=== PATIENT | female | born 1965 | race Caucasian/White ===

== ENCOUNTER 2016-09-23 10:22 | Observation (INO) | payer MEDICAID ==
[2016-09-23] MEDS ORDERED: Sodium Chloride 0.9% 1,000 ML IV STA (10:51)
[2016-09-23] MEDS ORDERED: Ondansetron 4 MG/2 ML SDV IVPUSH ONE (10:51)
[2016-09-23] MEDS ORDERED: HYDROmorphone 1 MG/ML Syringe IVPUSH ONE (10:56)
--- NOTE | 2016-09-23 11:03 | EDM.PDOC ---
ED HPI GENERAL MEDICAL PROBLEM - General Chief Complaint: Abdominal Pain Stated Complaint: FEVER, DIARRHEA,BLOATING AFTER SURGERY Time Seen by Provider: 09/23/16 10:42 Source of Information: Reports: Patient History Limitations: Reports: No Limitations - History of Present Illness INITIAL COMMENTS - FREE TEXT/NARRATIVE: The patient presents with generalized abdominal pain, nausea and vomiting. She also has diarrhea. She says she feels bloated. She has a fever and chills. She has no dysuria. She did not eat any bad food and she was not around anyone who was sick. She recently had surgery on August 29 in [place], [place]. She had ovarian cancer. She had a PET scan that was negative and she has been doing good. They used the robot to do the surgery. She has no other health problems. She denies cough, congestion, runny nose, chest pain and shortness of breath. Onset: Gradual Duration: Day(s): Location: Reports: Abdomen Quality: Reports: Other (Bloated and cramping) Severity: Moderate Improves with: Reports: None Worsens with: Reports: None Associated Symptoms: Reports: Fever/Chills, Nausea/Vomiting. Denies: Chest Pain , Shortness of Breath Abdominal Pain Score (Numeric/FACES): 7 - Related Data Allergies Allergy/AdvReac Type Severity Reaction Status Date / Time No Known Allergies Allergy Verified 09/23/16 10:38 Home Meds: Home Meds . 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: , Other (See Below) Other OB/BYN History: c-sections Oncologic (Cancer) History: Reports: Ovarian - Past Surgical History Oncologic Surgical History: Reports: Other (See Below) Other Oncologic Surgeries/Procedures: hysterectomy to remove ovarian cancer Social & Family History - Tobacco Use Smoking Status *Q: Never Smoker - Caffeine Use Caffeine Use: Reports: None - Recreational Drug Use Recreational Drug Use: No ED ROS GENERAL - Review of Systems Review Of Systems: See Below Constitutional: Reports: Fever, Chills HEENT: Reports: No Symptoms Respiratory: Reports: No Symptoms Cardiovascular: Reports: No Symptoms Endocrine: Reports: No Symptoms GI/Abdominal: Reports: Abdominal Pain, Diarrhea, Nausea, Vomiting : Reports: No Symptoms Musculoskeletal: Reports: No Symptoms Skin: Reports: No Symptoms Neurological: Reports: No Symptoms ED EXAM, GI/ABD - Physical Exam Exam: See Below Exam Limited By: No Limitations General Appearance: Alert, No Apparent Distress Ears: Normal External Exam Nose: Normal Inspection Head: Atraumatic, Normocephalic Neck: Normal Inspection Respiratory/Chest: No Respiratory Distress, Lungs Clear, Normal Breath Sounds Cardiovascular: Regular Rate, Rhythm, No Edema, No Murmur GI/Abdominal Exam: Soft, No Organomegaly, No Mass, Tender (Generalized) Back Exam: Normal Inspection Course - Vital Signs Last Recorded V/S: Last Vital Signs Temp 99.3 F 09/23/16 10:34 Pulse 96 09/23/16 10:34 Resp 16 09/23/16 10:34 BP 118/67 09/23/16 10:34 Pulse Ox 100 09/23/16 10:34 - Orders/Labs/Meds Orders: Active Orders 24 hr Category Date Time Status Peripheral IV Care [RC] . DIRECTED Care 09/23/16 10:51 Active Abdomen Pelvis w Cont [CT] Stat Exams 09/23/16 11:04 Taken CULTURE BLOOD [BC] Stat Lab 09/23/16 13:30 Received CULTURE BLOOD [BC] Stat Lab 09/23/16 13:45 Received Levofloxacin/Dextrose 5%-Water [Levaquin in D5W 500 MG/ Med 09/23/16 14:20 Active 100 ML] 500 mg Premix Bag 1 bag IV ONETIME Sodium Chloride 0.9% [Normal Saline] 1,000 ml Med 09/23/16 12:30 Active IV ASDIRECTED Sodium Chloride 0.9% [Saline Flush] Med 09/23/16 10:51 Active 10 ml FLUSH ASDIRECTED PRN Blood Culture x2 Reflex Set [OM.PC] Stat Oth 09/23/16 13:10 Ordered ED Antiemetic Medication Reflex [OM.PC] Stat Oth 09/23/16 10:52 Ordered Peripheral IV Insertion Adult [OM.PC] Stat Oth 09/23/16 10:51 Ordered Medication Orders Sodium Chloride (Normal Saline) 1,000 mls @ 150 mls/hr IV ASDIRECTED OWEN Last Admin: 09/23/16 12:30 Dose: 150 mls/hr Levofloxacin/Dextrose 500 mg/ (Premix) 100 mls @ 100 mls/hr IV ONETIME ONE Stop: 08/19/17 15:19 Sodium Chloride (Saline Flush) 10 ml FLUSH ASDIRECTED PRN PRN Reason: Keep Vein Open Last Admin: 09/23/16 12:29 Dose: 10 ml Admin: 09/23/16 12:12 Dose: 10 ml Admin: 09/23/16 11:32 Dose: 10 ml Labs: Laboratory Tests 09/23/16 09/23/16 09/23/16 Range/Units 11:12 11:12 11:55 WBC 12.49 H (3.98-10.04) K/mm3 RBC 3.95 L (3.98-5.22) M/mm3 Hgb 9.2 L (11.2-15.7) gm/L Hct 29.9 L (34.1-44.9) % MCV 75.7 L (79.4-94.8) fl MCH 23.3 L (25.6-32.2) pg MCHC 30.8 L (32.2-35.5) g/dl RDW Std Deviation 45.2 (36.4-46.3) fL Plt Count 1040 H* (182-369) K/mm3 MPV 9.8 (9.4-12.3) fl Neut % (Auto) 94.4 H (34.0-71.1) % Lymph % (Auto) 2.6 L (19.3-51.7) % Dickson % (Auto) 2.2 L (4.7-12.5) % Eos % (Auto) 0.2 L (0.7-5.8) Baso % (Auto) 0.4 (0.1-1.2) % Neut # (Auto) 11.78 H (1.56-6.13) K/mm3 Lymph # (Auto) 0.33 L (1.18-3.74) K/mm3 Dickson # (Auto) 0.28 (0.24-0.36) K/mm3 Eos # (Auto) 0.02 L (0.04-0.36) K/mm3 Baso # (Auto) 0.05 (0.01-0.08) K/mm3 Manual Slide Review Abnormal smear Sodium 137 (136-145) mEq/L Potassium 3.5 (3.5-5.1) mEq/L Chloride 104 (98-107) mEq/L Carbon Dioxide 21 (21-32) mEq/L Anion Gap 15.5 H (5-15) BUN 14 (7-18) mg/dL Creatinine 0.8 (0.55-1.02) mg/dL Est Cr Clr Drug Dosing 77.88 mL/min Estimated GFR (MDRD) > 60 (>60) mL/min BUN/Creatinine Ratio 17.5 (14-18) Glucose 113 H (74-106) mg/dL Calcium 9.0 (8.5-10.1) mg/dL Total Bilirubin 0.7 (0.2-1.0) mg/dL AST 15 (15-37) U/L ALT 23 (14-59) U/L Alkaline Phosphatase 62 (46-116) U/L Total Protein 8.1 (6.4-8.2) g/dl Albumin 3.9 (3.4-5.0) g/dl Globulin 4.2 gm/dL Albumin/Globulin Ratio 0.9 L (1-2) Lipase 77 (73-393) U/L Urine Color Yellow (Yellow) Urine Appearance Clear (Clear) Urine pH 7.0 (5.0-8.0) Ur Specific [place] 1.015 (1.005-1.030) Urine Protein Negative (Negative) Urine Glucose (UA) Negative (Negative) Urine Ketones Negative (Negative) Urine Occult Blood Negative (Negative) Urine Nitrite Negative (Negative) Urine Bilirubin Negative (Negative) Urine Urobilinogen 0.2 (0.2-1.0) Ur Leukocyte Esterase Negative (Negative) Urine RBC 0-5 (0-5) /hpf Urine WBC 0-5 (0-5) /hpf Ur Epithelial Cells 0-5 (0-5) /hpf Urine Bacteria Few (FEW) /hpf Urine Mucus Not seen (FEW) /hpf Meds: Medications Generic Name Dose Route Start Last Admin Trade Name Freq PRN Reason Stop Dose Admin Sodium Chloride 1,000 mls @ 150 mls/hr 09/23/16 12:30 09/23/16 12:30 Normal Saline IV 150 mls/hr ASDIRECTED OWEN Administration Levofloxacin/Dextrose 500 mg/ 100 mls @ 100 mls/hr 09/23/16 14:20 Premix IV 09/23/16 15:19 ONETIME ONE Sodium Chloride 10 ml 09/23/16 10:51 09/23/16 12:29 Saline Flush FLUSH 10 ml ASDIRECTED PRN Administration Keep Vein Open Discontinued Medications Generic Name Dose Route Start Last Admin Trade Name Jimena PRN Reason Stop Dose Admin Diatrizoate Meglum/Diatrizoate Sod 90 ml 09/23/16 11:59 09/23/16 12:12 Gastrografin 37% PO 09/23/16 12:00 90 ml ONETIME ONE Administration Hydromorphone HCl 1 mg 09/23/16 10:56 09/23/16 11:13 Dilaudid IVPUSH 09/23/16 10:57 1 mg ONETIME ONE Administration Hydromorphone HCl 0.5 mg 09/23/16 12:24 09/23/16 12:34 Dilaudid IVPUSH 09/23/16 12:25 0.5 mg ONETIME ONE Administration Sodium Chloride 1,000 mls @ 1,000 mls/hr 09/23/16 10:51 09/23/16 11:09 Normal Saline IV 09/23/16 11:50 1,000 mls/hr .BOLUS STA Administration Iopamidol 125 ml 09/23/16 11:59 09/23/16 12:12 Isovue-300 (61%) IVPUSH 09/23/16 12:00 125 ml ONETIME ONE Administration Ondansetron HCl 4 mg 09/23/16 10:51 09/23/16 11:10 Zofran IVPUSH 09/23/16 10:52 4 mg ONETIME ONE Administration - Re-Assessments/Exams Free Text/Narrative Re-Assessment/Exam: 09/23/16 11:06 I ordered an IV NS 1L bolus, zofran 4mg IV, dilaudid 1mg IV, labs, UA and CT of her abdomen and pelvis. 09/23/16 14:14 Her WBC was elevated at 12.49. Her Hgb was low at 9.2. She said she did need a transfusion when she was seen for the ovarian cancer. She had bleeding before the surgery. Her platelets were very elevated at 1,040. She has never had trouble with her platelets before. Her anion gap was slightly elevated at 15.5. Her lipase was normal. The CT of her abdomen and pelvis shows ventral abdominal hernia in the right anterior abdominal wall containing small bowel without evidence of obstruction. Cystic fluid collection in the posterior right hemipelvis, nonspecific but may represent a postsurgical seroma. I called Dr Palmer and he was concerned that this could be a reactive thrombocytosis. He recommended blood cultures and follow up with him or one of his partners next week. I ordered the cultures and I talked to the patient she feels better but she is still weak and a little light headed. I will give her a dose of levaquin 500mg IV and see if Dr Pineda our hospitalist would admit her and she would. Departure - Departure Time of Disposition: 14:30 Disposition: Refer to Observation Condition: Fair Clinical Impression: Thrombocytosis Leukocytosis Qualifiers: Leukocytosis type: unspecified Qualified Code(s): D72.829 - Elevated white blood cell count, unspecified Abdominal pain Qualifiers: Abdominal location: generalized Qualified Code(s): R10.84 - Generalized abdominal pain Nausea and vomiting Qualifiers: Vomiting type: unspecified Vomiting Intractability: unspecified Qualified Code( s): R11.2 - Nausea with vomiting, unspecified Diarrhea Qualifiers: Diarrhea type: unspecified type Qualified Code(s): R19.7 - Diarrhea, unspecified - Discharge Information Forms: ED Department Discharge - My Orders Last 24 Hours: My Active Orders 09/23/16 10:51 Peripheral IV Care [RC] . DIRECTED Sodium Chloride 0.9% [Saline Flush] 10 ml FLUSH ASDIRECTED PRN Peripheral IV Insertion Adult [OM.PC] Stat 09/23/16 10:52 ED Antiemetic Medication Reflex [OM.PC] Stat 09/23/16 11:04 Abdomen Pelvis w Cont [CT] Stat 09/23/16 12:30 Sodium Chloride 0.9% [Normal Saline] 1,000 ml IV ASDIRECTED 09/23/16 13:10 Blood Culture x2 Reflex Set [OM.PC] Stat 09/23/16 13:30 CULTURE BLOOD [BC] Stat 09/23/16 13:45 CULTURE BLOOD [BC] Stat 09/23/16 14:20 Levofloxacin/Dextrose 5%-Water [Levaquin in D5W 500 MG/100 ML] 500 mg Premix Bag 1 bag IV ONETIME - Assessment/Plan Last 24 Hours: My Active Orders 09/23/16 10:51 Peripheral IV Care [RC] . DIRECTED Sodium Chloride 0.9% [Saline Flush] 10 ml FLUSH ASDIRECTED PRN Peripheral IV Insertion Adult [OM.PC] Stat 09/23/16 10:52 ED Antiemetic Medication Reflex [OM.PC] Stat 09/23/16 11:04 Abdomen Pelvis w Cont [CT] Stat 09/23/16 12:30 Sodium Chloride 0.9% [Normal Saline] 1,000 ml IV ASDIRECTED 09/23/16 13:10 Blood Culture x2 Reflex Set [OM.PC] Stat 09/23/16 13:30 CULTURE BLOOD [BC] Stat 09/23/16 13:45 CULTURE BLOOD [BC] Stat 09/23/16 14:20 Levofloxacin/Dextrose 5%-Water [Levaquin in D5W 500 MG/100 ML] 500 mg Premix Bag 1 bag IV ONETIME
[2016-09-23] MEDS: Sodium Chloride 0.9% 10 ML Syringe FLUSH PRN ×3 (11:32→12:29)
[2016-09-23] MEDS ORDERED: Diatrizoate Meglumine/Diatrizoate Sodium 37% 120 ML Bottle PO ONE (11:59)
[2016-09-23] MEDS ORDERED: Iopamidol 612 MG/ML 150 ML Bottle IVPUSH ONE (11:59)
[2016-09-23] MEDS ORDERED: HYDROmorphone 0.5 MG/0.5 ML Syringe IVPUSH ONE (12:24)
[2016-09-23] MEDS: Sodium Chloride 0.9% 1,000 ML IV SCH (12:30)
[2016-09-23] MEDS ORDERED: Levofloxacin/Dextrose 5%-Water 500 MG in Premix Bag 1 BAG IV ONE (14:20)
[2016-09-23] MEDS ORDERED: Ondansetron 4 MG/2 ML SDV IVPUSH PRN (15:41)
[2016-09-23] MEDS ORDERED: Prochlorperazine 10 MG/2 ML SDV IVPUSH PRN (15:44)
[2016-09-23] MEDS ORDERED: Potassium Chloride 10% 20 MEQ/15 ML Soln 30 ML UD Cup PO ONE ×2 (15:46→16:30)
[2016-09-23] MEDS: HYDROmorphone 0.5 MG/0.5 ML Syringe IVPUSH PRN ×2 (16:04→21:53)
--- NOTE | 2016-09-23 16:18 | PCM.HP ---
H&P History of Present Illness - General Date of Service: 09/23/16 Admit Problem/Dx: Admission Diagnosis/Problem Admission Diagnosis/Problem Abdominal pain Source of Information: Patient, Provider History Limitations: Reports: No Limitations - History of Present Illness Initial Comments - Free Text/Narative: 51 year old female dehydrated with diarrhea, presented with a complaint of fever and chills. She is post op 4 weeks, abdominal hysterectomy for ovarian CA. Recent PET scan was reportedly WNL. She has had a decreased appetite, malaise and generalized weakness. The abdominal pain is generalized, unrelated to eating. She denies blood or mucous in her stool. She is being admitted to observation for ATB, IVF, await blood cultures to direct plan of care. She received the initial dose of Levoquin in the ED. Onset of Symptoms: Reports: Unknown/Unsure Duration of Symptoms: Reports: Day(s):, Getting Worse Location: Reports: Abdomen, Generalized Severity: Moderate Improves with: Reports: Medication Associated Symptoms: Reports: Fever/Chills, Loss of Appetite, Malaise, Nausea/ Vomiting Abdominal Pain Score (Numeric/FACES): 7 - Related Data Allergies/Adverse Reactions: Allergies Allergy/AdvReac Type Severity Reaction Status Date / Time No Known Allergies Allergy Verified 09/23/16 10:38 Home Medications: Home Meds . 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: , Other (See Below) Other OB/BYN History: c-sections Musculoskeletal History: Reports: Other (See Below) Other Musculoskeletal History: slight curvature in cervical spine per pt report- neck pain at times Neurological History: Reports: None Hematologic History: Reports: Anemia, Blood Transfusion(s) Other Hematologic History: shedding of urterus during ovarian cancer Immunologic History: Reports: None Oncologic (Cancer) History: Reports: Ovarian Dermatologic History: Reports: None - Infectious Disease History Infectious Disease History: Reports: Chicken Pox - Past Surgical History GI Surgical History: Reports: None Musculoskeletal Surgical History: Reports: None Oncologic Surgical History: Reports: Other (See Below) Other Oncologic Surgeries/Procedures: hysterectomy to remove ovarian cancer, august 29 2016 Social & Family History - Family History : Reports: Renal Disease/Insufficiency Other Family History: brother Neurological: Reports: TIA Other Neurological Family History: father Endocrine/Metabolic: Reports: Diabetes, type II Other Endocrine/Metabolic Family History: grandmother - Tobacco Use Smoking Status *Q: Never Smoker Second Hand Smoke Exposure: No - Caffeine Use Caffeine Use: Reports: Tea - Recreational Drug Use Recreational Drug Use: No H&P Review of Systems - Review of Systems: Review Of Systems: See Below General: Reports: Malaise, Weakness, Fatigue, Decreased Appetite HEENT: Reports: No Symptoms Pulmonary: Reports: No Symptoms Cardiovascular: Reports: Lightheadedness Gastrointestinal: Reports: Abdominal Pain, Diarrhea, Nausea, Vomiting Genitourinary: Reports: No Symptoms Musculoskeletal: Reports: No Symptoms Skin: Reports: No Symptoms Psychiatric: Reports: No Symptoms Neurological: Reports: No Symptoms Hematologic/Lymphatic: Reports: No Symptoms Immunologic: Reports: No Symptoms Exam - Exam Exam: See Below - Vital Signs Vital Signs: Last Vital Signs Temp 37.1 C 09/23/16 15:06 Pulse 109 H 09/23/16 15:06 Resp 16 09/23/16 15:06 BP 122/45 L 09/23/16 15:06 Pulse Ox 96 09/23/16 15:06 Weight: 79.288 kg - Exam Quality Assessment: DVT Prophylaxis General: Alert, Oriented, Cooperative HEENT: Conjunctiva Clear, Nares Patent, Normal Nasal Septum, Posterior Pharynx Clear, Pupils Equal, Pupils Reactive, TMs Clear Neck: Supple, Trachea Midline Lungs: Clear to Auscultation, Normal Respiratory Effort Cardiovascular: Regular Rate, Regular Rhythm GI/Abdominal Exam: Normal Bowel Sounds, Soft, Non-Tender, No Organomegaly, No Distention (Female) Exam: Deferred Rectal (Female) Exam: Deferred Back Exam: Normal Inspection Extremities: Normal Inspection, Non-Tender, No Pedal Edema Skin: Warm, Dry, Intact Neurological: Cranial Nerves Intact, Normal Gait, Normal Speech Neuro Extensive - Mental Status: Alert, Oriented x3, Normal Mood/Affect, Normal Cognition, Memory Intact Neuro Extensive - Motor, Sensory, Reflexes: CN II-XII Intact, Normal Gait Psychiatric: Alert, Normal Affect, Normal Mood - Patient Data Result Diagrams: 09/23/16 11:12 09/23/16 11:12 *Q Meaningful Use (ADM) - VTE *Q VTE Criteria *Q: - Stroke *Q Stroke Criteria *Q: - AMI *Q AMI Criteria *Q: - Problem List (1) Abdominal pain SNOMED Code(s): 31913286 ICD Code: R10.9 - UNSPECIFIED ABDOMINAL PAIN Status: Acute Current Visit : Yes Qualifiers: Abdominal location: generalized Qualified Code(s): R10.84 - Generalized abdominal pain (2) Diarrhea SNOMED Code(s): 43353337 ICD Code: R19.7 - DIARRHEA, UNSPECIFIED Status: Acute Current Visit: Yes Qualifiers: Diarrhea type: unspecified type Qualified Code(s): R19.7 - Diarrhea, unspecified (3) Leukocytosis SNOMED Code(s): 176123261, 240850327 ICD Code: D72.829 - ELEVATED WHITE BLOOD CELL COUNT, UNSPECIFIED Status: Acute Current Visit: Yes Qualifiers: Leukocytosis type: unspecified Qualified Code(s): D72.829 - Elevated white blood cell count, unspecified (4) Nausea and vomiting SNOMED Code(s): 33508484 ICD Code: R11.2 - NAUSEA WITH VOMITING, UNSPECIFIED Status: Acute Current Visit: Yes Qualifiers: Vomiting type: unspecified Vomiting Intractability: unspecified Qualified Code(s): R11.2 - Nausea with vomiting, unspecified (5) Thrombocytosis SNOMED Code(s): 0266878, 090487428 ICD Code: D47.3 - ESSENTIAL (HEMORRHAGIC) THROMBOCYTHEMIA Status: Acute Current Visit: Yes Problem List Initiated/Reviewed/Updated: Yes Orders Last 24hrs: Active Orders 24 hr Category Date Time Status Patient Status [ADT] Routine ADT 09/23/16 15:02 Active Activity as Tolerated [RC] .Routine Care 09/23/16 15:37 Active Vital Signs [RC] Q4HR Care 09/23/16 15:37 Active Consult to Case Management [CONS] Routine Cons 09/25/16 08:00 Active BASIC METABOLIC PANEL,BMP [CHEM] DAILY Lab 09/24/16 05:00 Ordered BASIC METABOLIC PANEL,BMP [CHEM] DAILY Lab 09/25/16 05:00 Ordered CBC WITH AUTO DIFF [HEME] DAILY Lab 09/24/16 05:00 Ordered CBC WITH AUTO DIFF [HEME] DAILY Lab 09/25/16 05:00 Ordered CRP [C-REACTIVE PROTEIN] [CHEM] DAILY Lab 09/24/16 05:00 Ordered CRP [C-REACTIVE PROTEIN] [CHEM] DAILY Lab 09/25/16 05:00 Ordered MAGNESIUM [CHEM] DAILY Lab 09/24/16 05:00 Ordered MAGNESIUM [CHEM] DAILY Lab 09/25/16 05:00 Ordered Acetaminophen [Tylenol] Med 09/23/16 15:42 Active 650 mg PO Q6H PRN Enoxaparin [Lovenox] Med 09/23/16 17:00 Active 40 mg SUBCUT DAILY HYDROmorphone [Dilaudid] Med 09/23/16 15:42 Active 0.5 mg IVPUSH Q4H PRN Levofloxacin/Dextrose 5%-Water [Levaquin in D5W 750 MG/ Med 09/24/16 09:00 Active 150 ML] 750 mg Premix Bag 1 bag IV Q24H Ondansetron [Zofran] Med 09/23/16 15:41 Active 4 mg IVPUSH Q8H PRN Prochlorperazine [Compazine] Med 09/23/16 15:44 Active 10 mg IVPUSH Q6H PRN Resuscitation Status Routine Resus Stat 09/23/16 15:48 Ordered Medication Orders Acetaminophen (Tylenol) 650 mg PO Q6H PRN PRN Reason: Pain/Fever Enoxaparin Sodium (Lovenox) 40 mg SUBCUT DAILY [facility] Hydromorphone HCl (Dilaudid) 0.5 mg IVPUSH Q4H PRN PRN Reason: Pain (moderate 4-6) Sodium Chloride (Normal Saline) 1,000 mls @ 150 mls/hr IV ASDIRECTED [facility] Last Admin: 09/23/16 12:30 Dose: 150 mls/hr Levofloxacin/Dextrose 750 mg/ (Premix) 150 mls @ 100 mls/hr IV Q24H [facility] Ondansetron HCl (Zofran) 4 mg IVPUSH Q8H PRN PRN Reason: Nausea/Vomiting Prochlorperazine Edisylate (Compazine) 10 mg IVPUSH Q6H PRN PRN Reason: Nausea/Vomiting Sodium Chloride (Saline Flush) 10 ml FLUSH ASDIRECTED PRN PRN Reason: Keep Vein Open Last Admin: 09/23/16 12:29 Dose: 10 ml Admin: 09/23/16 12:12 Dose: 10 ml Admin: 09/23/16 11:32 Dose: 10 ml Assessment/Plan Comment:: Impression: S/P Abdominal Hysterectomy August 29, 2016 Ovarian CA with negative PET Scan Abdominal pain Abnormal CT of abdomen/pelvis with possible nonspecific post surgical seroma Ventral Hernia with small bowel, non obstruction Diarrhea Thrombocytosis, query reactive Dehydration Electrolyte imbalance Plan: Hydration, continue IVF Replace electrolytes Pain mgt Daily Labs IV ATBs, empirically Follow up with Dr Palmer next week, will need to call DVT/GI prophylaxis CM/PT/OT
[2016-09-23] MEDS: Enoxaparin 40 MG/0.4 ML Syringe SUBCUT SCH (16:26)
[2016-09-23] MEDS: Acetaminophen Soln 650 MG/20.3 ML UD Cup PO PRN (20:17)
[2016-09-24] MEDS: Sodium Chloride 0.9% 1,000 ML IV SCH ×3 (01:23→14:48)
[2016-09-24] MEDS ORDERED: Magnesium Sulfate/Water 2 GM in Premix Bag 1 BAG IV ONE (07:54)
[2016-09-24] MEDS: HYDROmorphone 0.5 MG/0.5 ML Syringe IVPUSH PRN (08:09)
[2016-09-24] MEDS: Levofloxacin/Dextrose 5%-Water 750 MG in Premix Bag 1 BAG IV SCH (08:11)
[2016-09-24] MEDS: Enoxaparin 40 MG/0.4 ML Syringe SUBCUT SCH (08:11)
--- NOTE | 2016-09-24 08:30 | PCM.PN ---
- General Info Date of Service: 09/24/16 Admission Dx/Problem (Free Text): Admission Diagnosis/Problem Admission Diagnosis/Problem Abdominal pain Subjective Update: Follow Up Functional Status: Reports: Pain Controlled, Tolerating Diet, Ambulating, Urinating. Denies: New Symptoms - Review of Systems General: Denies: Fever, Weakness, Fatigue, Malaise HEENT: Reports: No Symptoms Pulmonary: Denies: Shortness of Breath Cardiovascular: Denies: Chest Pain Gastrointestinal: Denies: Abdominal Pain, Nausea, Vomiting Genitourinary: Reports: No Symptoms Musculoskeletal: Reports: No Symptoms Skin: Denies: Cyanosis, Pruritis Neurological: Denies: Confusion, Difficulty Walking, Weakness, Gait Disturbance Psychiatric: Denies: Depression, Anxiety, Agitation, Hallucinations Systems Review Comment:: No overnight or acute issues. She is doing relatively well. She feel much better. She has no new complaints. - Patient Data Vitals - Most Recent: Last Vital Signs Temp 37.2 C 09/24/16 03:13 Pulse 79 09/24/16 03:13 Resp 14 09/24/16 03:13 BP 111/55 L 09/24/16 03:13 Pulse Ox 96 09/24/16 03:13 Weight - Most Recent: 79.742 kg I&O - Last 24 Hours: Intake & Output 09/23/16 09/24/16 09/24/16 22:59 06:59 14:59 Intake Total 150 3469 Output Total 900 Balance 150 2569 Lab Results Last 24 Hours: Laboratory Results - last 24 hr 09/24/16 09/24/16 09/24/16 Range/Units 05:45 05:45 07:00 WBC 3.76 L 3.49 L (3.98-10.04) K/mm3 RBC 3.33 L 3.28 L (3.98-5.22) M/mm3 Hgb 7.8 L 7.6 L (11.2-15.7) gm/L Hct 25.8 L 25.5 L (34.1-44.9) % MCV 77.5 L 77.7 L (79.4-94.8) fl MCH 23.4 L 23.2 L (25.6-32.2) pg MCHC 30.2 L 29.8 L (32.2-35.5) g/dl RDW Std Deviation 46.0 46.2 (36.4-46.3) fL Plt Count 719 H 727 H (182-369) K/mm3 MPV 10.1 9.4 (9.4-12.3) fl Neut % (Auto) 60.1 59.6 (34.0-71.1) % Lymph % (Auto) 27.7 28.1 (19.3-51.7) % Mckenzie % (Auto) 9.3 8.9 (4.7-12.5) % Eos % (Auto) 1.3 2.0 (0.7-5.8) Baso % (Auto) 1.3 H 1.4 H (0.1-1.2) % Neut # (Auto) 2.26 2.08 (1.56-6.13) K/mm3 Lymph # (Auto) 1.04 L 0.98 L (1.18-3.74) K/mm3 Mckenzie # (Auto) 0.35 0.31 (0.24-0.36) K/mm3 Eos # (Auto) 0.05 0.07 (0.04-0.36) K/mm3 Baso # (Auto) 0.05 0.05 (0.01-0.08) K/mm3 Manual Slide Review Abnormal smear Abnormal smear Sodium 141 (136-145) mEq/L Potassium 3.3 L (3.5-5.1) mEq/L Chloride 110 H (98-107) mEq/L Carbon Dioxide 21 (21-32) mEq/L Anion Gap 13.3 (5-15) BUN 6 L (7-18) mg/dL Creatinine 0.6 (0.55-1.02) mg/dL Est Cr Clr Drug Dosing 79.68 mL/min Estimated GFR (MDRD) > 60 (>60) mL/min BUN/Creatinine Ratio 10.0 L (14-18) Glucose 96 (74-106) mg/dL Calcium 8.2 L (8.5-10.1) mg/dL Magnesium 1.9 (1.8-2.4) mg/dl C-Reactive Protein 7.5 H* (<1.0) mg/dL Med Orders - Current: Current Medications Acetaminophen (Tylenol) 650 mg PO Q6H PRN PRN Reason: Pain/Fever Last Admin: 09/23/16 20:17 Dose: 650 mg Enoxaparin Sodium (Lovenox) 40 mg SUBCUT DAILY [facility] Last Admin: 09/24/16 08:11 Dose: 40 mg Hydromorphone HCl (Dilaudid) 0.5 mg IVPUSH Q4H PRN PRN Reason: Pain (moderate 4-6) Last Admin: 09/24/16 08:09 Dose: 0.5 mg Sodium Chloride (Normal Saline) 1,000 mls @ 150 mls/hr IV ASDIRECTED [facility] Last Admin: 09/24/16 08:09 Dose: 150 mls/hr Levofloxacin/Dextrose 750 mg/ (Premix) 150 mls @ 100 mls/hr IV Q24H [facility] Last Admin: 09/24/16 08:11 Dose: 100 mls/hr Magnesium Sulfate 2 gm/ Premix 50 mls @ 25 mls/hr IV ONETIME ONE Stop: 09/24/16 09:53 Ondansetron HCl (Zofran) 4 mg IVPUSH Q8H PRN PRN Reason: Nausea/Vomiting Last Admin: 09/23/16 16:03 Dose: 4 mg Potassium Chloride (Potassium Chloride) 40 meq PO BID [facility] Stop: 09/24/16 21:01 Prochlorperazine Edisylate (Compazine) 10 mg IVPUSH Q6H PRN PRN Reason: Nausea/Vomiting Sodium Chloride (Saline Flush) 10 ml FLUSH ASDIRECTED PRN PRN Reason: Keep Vein Open Last Admin: 09/23/16 12:29 Dose: 10 ml Discontinued Medications Diatrizoate Meglum/Diatrizoate Sod (Gastrografin 37%) 90 ml PO ONETIME ONE Stop: 09/23/16 12:00 Last Admin: 09/23/16 12:12 Dose: 90 ml Hydromorphone HCl (Dilaudid) 1 mg IVPUSH ONETIME ONE Stop: 09/23/16 10:57 Last Admin: 09/23/16 11:13 Dose: 1 mg Hydromorphone HCl (Dilaudid) 0.5 mg IVPUSH ONETIME ONE Stop: 09/23/16 12:25 Last Admin: 09/23/16 12:34 Dose: 0.5 mg Sodium Chloride (Normal Saline) 1,000 mls @ 1,000 mls/hr IV .BOLUS STA Stop: 09/23/16 11:50 Last Admin: 09/23/16 11:09 Dose: 1,000 mls/hr Levofloxacin/Dextrose 500 mg/ (Premix) 100 mls @ 100 mls/hr IV ONETIME ONE Stop: 09/23/16 15:19 Last Admin: 09/23/16 14:51 Dose: 100 mls/hr Iopamidol (Isovue-300 (61%)) 125 ml IVPUSH ONETIME ONE Stop: 09/23/16 12:00 Last Admin: 09/23/16 12:12 Dose: 125 ml Ondansetron HCl (Zofran) 4 mg IVPUSH ONETIME ONE Stop: 09/23/16 10:52 Last Admin: 09/23/16 11:10 Dose: 4 mg Potassium Chloride (Potassium Chloride) 40 meq PO ONETIME ONE Stop: 09/23/16 15:47 Last Admin: 09/23/16 16:26 Dose: 40 meq Potassium Chloride (Potassium Chloride) 40 meq PO ONETIME ONE Stop: 09/23/16 16:31 Last Admin: 09/23/16 16:53 Dose: Not Given - Exam General: Alert, Oriented, Cooperative, No Acute Distress HEENT: Pupils Equal, Pupils Reactive, EOMI, Mucous Membr. Moist/[place] Neck: Supple, Trachea Midline, No JVD, No Thyromegaly Lungs: Clear to Auscultation, Normal Respiratory Effort Cardiovascular: Regular Rate, Regular Rhythm GI/Abdominal Exam: Normal Bowel Sounds, Soft, No Organomegaly, No Distention, No Abnormal Bruit, No Mass, Tender (on surgical site) (Female) Exam: Deferred Back Exam: Normal Inspection, Decreased Range of Motion Extremities: Normal Inspection, Normal Range of Motion, Non-Tender, No Pedal Edema, Normal Capillary Refill Peripheral Pulses: 2+: Dorsalis Pedis (L), Dorsalis Pedis (R) Skin: Warm, Dry, Intact Neurological: No New Focal Deficit Psy/Mental Status: Alert, Normal Affect, Normal Mood - Problem List Review Problem List Initiated/Reviewed/Updated: Yes - Plan Plan:: Impression: Acute: Anemia, Unspecified - Hgb 9.2 ---> 7.6 (does not meet criteria for transfusion) - Likely post-surgical blood loss - GS consulted - Iron supplement with Vit C - Can be monitored outpatient Thrombocytosis, Improving - Likely Reactive from recent surgery - Platelet 1040 ---> now 727 - Monitor - Outpatient Hematology eval after discharge Abdominal Pain, Improved - Abnormal CT of abdomen/pelvis with possible nonspecific post surgical seroma - Ventral Hernia with small bowel, non obstruction Ovarian CA with Negative PET Scan - S/P Abdominal Hysterectomy August 29, 2016 - Stable Hypokalemia - K is 3.3 2/2 GI Loss - Pharmacy to replete and monitor Resolved: Fever Diarrhea Dehydration Electrolyte imbalance Plan: She looks clinically much better Continue current treatment Advanced diet as tolerated Daily Labs Continue IV ATBs per Deployment Technician's recommendation Follow up with Dr. Palmer next week, will need to call; patient don't mind seeing local specialist here in town ---> Dr. Martin DVT/GI prophylaxis CM/MAXIM for d/c planning Possible d/c in AM
[2016-09-24] MEDS ORDERED: Metoprolol Tartrate 5 MG/5 ML SDV IVPUSH PRN (09:47)
[2016-09-24] MEDS ORDERED: hydrALAZINE 20 MG/ML SDV IVPUSH PRN (09:47)
[2016-09-24] MEDS: Potassium Chloride 10% 20 MEQ/15 ML Soln 30 ML UD Cup PO SCH ×2 (10:05→22:12)
--- NOTE | 2016-09-24 13:59 | PCM.CONSN ---
- General Info Date of Service: 09/24/16 - Patient Data Vitals - Most Recent: Last Vital Signs Temp 99.0 F 09/24/16 03:13 Pulse 79 09/24/16 03:13 Resp 14 09/24/16 03:13 BP 111/55 L 09/24/16 03:13 Pulse Ox 96 09/24/16 03:13 Weight - Most Recent: 79.742 kg I&O - Last 24 Hours: Intake & Output 09/23/16 09/24/16 09/24/16 23:59 07:59 15:59 Intake Total 150 3469 360 Output Total 900 Balance 150 2569 360 Lab Results Last 24 Hours: Laboratory Results - last 24 hr 09/24/16 09/24/16 09/24/16 Range/Units 05:45 05:45 05:45 WBC 3.76 L (3.98-10.04) K/mm3 RBC 3.33 L (3.98-5.22) M/mm3 Hgb 7.8 L (11.2-15.7) gm/L Hct 25.8 L (34.1-44.9) % MCV 77.5 L (79.4-94.8) fl MCH 23.4 L (25.6-32.2) pg MCHC 30.2 L (32.2-35.5) g/dl RDW Std Deviation 46.0 (36.4-46.3) fL Plt Count 719 H (182-369) K/mm3 MPV 10.1 (9.4-12.3) fl Neut % (Auto) 60.1 (34.0-71.1) % Lymph % (Auto) 27.7 (19.3-51.7) % Castro % (Auto) 9.3 (4.7-12.5) % Eos % (Auto) 1.3 (0.7-5.8) Baso % (Auto) 1.3 H (0.1-1.2) % Neut # (Auto) 2.26 (1.56-6.13) K/mm3 Lymph # (Auto) 1.04 L (1.18-3.74) K/mm3 [place] # (Auto) 0.35 (0.24-0.36) K/mm3 Eos # (Auto) 0.05 (0.04-0.36) K/mm3 Baso # (Auto) 0.05 (0.01-0.08) K/mm3 Manual Slide Review Abnormal smear D-Dimer, Quantitative 0.35 (0.19-0.59) mg/L Sodium 141 (136-145) mEq/L Potassium 3.3 L (3.5-5.1) mEq/L Chloride 110 H (98-107) mEq/L Carbon Dioxide 21 (21-32) mEq/L Anion Gap 13.3 (5-15) BUN 6 L (7-18) mg/dL Creatinine 0.6 (0.55-1.02) mg/dL Est Cr Clr Drug Dosing 79.68 mL/min Estimated GFR (MDRD) > 60 (>60) mL/min BUN/Creatinine Ratio 10.0 L (14-18) Glucose 96 (74-106) mg/dL Calcium 8.2 L (8.5-10.1) mg/dL Magnesium 1.9 (1.8-2.4) mg/dl C-Reactive Protein 7.5 H* (<1.0) mg/dL Mycoplasma pneumon IgM (NEGATIVE) 09/24/16 09/24/16 Range/Units 05:45 07:00 WBC 3.49 L (3.98-10.04) K/mm3 RBC 3.28 L (3.98-5.22) M/mm3 Hgb 7.6 L (11.2-15.7) gm/L Hct 25.5 L (34.1-44.9) % MCV 77.7 L (79.4-94.8) fl MCH 23.2 L (25.6-32.2) pg MCHC 29.8 L (32.2-35.5) g/dl RDW Std Deviation 46.2 (36.4-46.3) fL Plt Count 727 H (182-369) K/mm3 MPV 9.4 (9.4-12.3) fl Neut % (Auto) 59.6 (34.0-71.1) % Lymph % (Auto) 28.1 (19.3-51.7) % Castro % (Auto) 8.9 (4.7-12.5) % Eos % (Auto) 2.0 (0.7-5.8) Baso % (Auto) 1.4 H (0.1-1.2) % Neut # (Auto) 2.08 (1.56-6.13) K/mm3 Lymph # (Auto) 0.98 L (1.18-3.74) K/mm3 [place] # (Auto) 0.31 (0.24-0.36) K/mm3 Eos # (Auto) 0.07 (0.04-0.36) K/mm3 Baso # (Auto) 0.05 (0.01-0.08) K/mm3 Manual Slide Review Abnormal smear D-Dimer, Quantitative (0.19-0.59) mg/L Sodium (136-145) mEq/L Potassium (3.5-5.1) mEq/L Chloride (98-107) mEq/L Carbon Dioxide (21-32) mEq/L Anion Gap (5-15) BUN (7-18) mg/dL Creatinine (0.55-1.02) mg/dL Est Cr Clr Drug Dosing mL/min Estimated GFR (MDRD) (>60) mL/min BUN/Creatinine Ratio (14-18) Glucose (74-106) mg/dL Calcium (8.5-10.1) mg/dL Magnesium (1.8-2.4) mg/dl C-Reactive Protein (<1.0) mg/dL Mycoplasma pneumon IgM Negative (NEGATIVE) Med Orders - Current: Current Medications Acetaminophen (Tylenol) 650 mg PO Q6H PRN PRN Reason: Pain/Fever Last Admin: 09/23/16 20:17 Dose: 650 mg Enoxaparin Sodium (Lovenox) 40 mg SUBCUT DAILY [facility] Last Admin: 09/24/16 08:11 Dose: 40 mg Hydralazine HCl (Apresoline) 20 mg IVPUSH Q4H PRN PRN Reason: Hypertension Hydromorphone HCl (Dilaudid) 0.5 mg IVPUSH Q4H PRN PRN Reason: Pain (moderate 4-6) Last Admin: 09/24/16 08:09 Dose: 0.5 mg Sodium Chloride (Normal Saline) 1,000 mls @ 150 mls/hr IV ASDIRECTED [facility] Last Admin: 09/24/16 08:09 Dose: 150 mls/hr Levofloxacin/Dextrose 750 mg/ (Premix) 150 mls @ 100 mls/hr IV Q24H [facility] Last Admin: 09/24/16 08:11 Dose: 100 mls/hr Magnesium Sulfate (Pharmacy To Dose - Magnesium Replacement) 1 dose .XX ASDIRECTED [facility] Metoprolol Tartrate (Lopressor) 5 mg IVPUSH Q4H PRN PRN Reason: Tachycardia Ondansetron HCl (Zofran) 4 mg IVPUSH Q8H PRN PRN Reason: Nausea/Vomiting Last Admin: 09/23/16 16:03 Dose: 4 mg Potassium Chloride (Potassium Chloride) 40 meq PO BID [facility] Stop: 09/24/16 21:01 Last Admin: 09/24/16 10:05 Dose: 40 meq Potassium Chloride (Pharmacy To Dose - Potassium Replacement) 1 dose .XX ASDIRECTED [facility] Prochlorperazine Edisylate (Compazine) 10 mg IVPUSH Q6H PRN PRN Reason: Nausea/Vomiting Sodium Chloride (Saline Flush) 10 ml FLUSH ASDIRECTED PRN PRN Reason: Keep Vein Open Last Admin: 09/23/16 12:29 Dose: 10 ml Discontinued Medications Diatrizoate Meglum/Diatrizoate Sod (Gastrografin 37%) 90 ml PO ONETIME ONE Stop: 09/23/16 12:00 Last Admin: 09/23/16 12:12 Dose: 90 ml Hydromorphone HCl (Dilaudid) 1 mg IVPUSH ONETIME ONE Stop: 09/23/16 10:57 Last Admin: 09/23/16 11:13 Dose: 1 mg Hydromorphone HCl (Dilaudid) 0.5 mg IVPUSH ONETIME ONE Stop: 09/23/16 12:25 Last Admin: 09/23/16 12:34 Dose: 0.5 mg Sodium Chloride (Normal Saline) 1,000 mls @ 1,000 mls/hr IV .BOLUS STA Stop: 09/23/16 11:50 Last Admin: 09/23/16 11:09 Dose: 1,000 mls/hr Levofloxacin/Dextrose 500 mg/ (Premix) 100 mls @ 100 mls/hr IV ONETIME ONE Stop: 09/23/16 15:19 Last Admin: 09/23/16 14:51 Dose: 100 mls/hr Magnesium Sulfate 2 gm/ Premix 50 mls @ 25 mls/hr IV ONETIME ONE Stop: 09/24/16 09:53 Last Admin: 09/24/16 10:05 Dose: 25 mls/hr Iopamidol (Isovue-300 (61%)) 125 ml IVPUSH ONETIME ONE Stop: 09/23/16 12:00 Last Admin: 09/23/16 12:12 Dose: 125 ml Ondansetron HCl (Zofran) 4 mg IVPUSH ONETIME ONE Stop: 09/23/16 10:52 Last Admin: 09/23/16 11:10 Dose: 4 mg Potassium Chloride (Potassium Chloride) 40 meq PO ONETIME ONE Stop: 09/23/16 15:47 Last Admin: 09/23/16 16:26 Dose: 40 meq Potassium Chloride (Potassium Chloride) 40 meq PO ONETIME ONE Stop: 09/23/16 16:31 Last Admin: 09/23/16 16:53 Dose: Not Given Consult PN Assessment/Plan Problem List Initiated/Reviewed/Updated: Yes Plan: surgical consult dictated KELLI
--- NOTE | 2016-09-24 15:44 | CR ---
Chest: 2 views of the chest were obtained. Comparison: No previous chest x-rays available. Heart size and mediastinum are normal. Scoliosis is noted within the spine. Minimal atelectasis is seen within the left base. Lungs otherwise are clear. Impression: 1. Incidental findings. 2. Nothing acute is appreciated on 2 view chest x-ray. Diagnostic code #2
[2016-09-24] MEDS: Acetaminophen Soln 650 MG/20.3 ML UD Cup PO PRN (16:24)
[2016-09-24] MEDS: Iron Polysaccharides Complex 150 MG Cap PO SCH (22:13)
[2016-09-24] MEDS: Ascorbic Acid 500 MG Tab PO SCH (22:13)
[2016-09-25] MEDS: Acetaminophen Soln 650 MG/20.3 ML UD Cup PO PRN (06:48)
--- NOTE | 2016-09-25 09:13 | CONS ---
CONSULTING PHYSICIAN: Paramjit Dahl MD DATE OF CONSULTATION: 09/24/2016 REASON FOR CONSULTATION: This is a 51-year-old who on Sunday developed nausea and vomiting and then abdominal pain she also had associated with diarrhea. This persisted the following day and associated with fever and chills. She came into the emergency room and was admitted, given IV fluids and hemoglobin came from 9.2 down to 7.6. She had given a history of having a total abdominal hysterectomy for ovarian cancer a month ago by Dr. Darnell in [place]. Her recent PET scan did not show any residual disease. The patient has improved with rehydration. Her abdominal pain, nausea and vomiting have resolved, but her hemoglobin is somewhat on the low side 7.6, although she does not report any problems. REVIEW OF SYSTEMS: No chest pain, shortness of breath, cough, hoarseness, wheezing, fainting, weakness, numbness, or convulsions. PAST SURGICAL HISTORY: As stated above. FAMILY HISTORY: Diabetic disease in the family. Never smoked. She lives in [facility]. MEDICATIONS: Per medication reconciliation form. PHYSICAL EXAMINATION: GENERAL: Temperature 37, pulse 109, respirations 16, blood pressure 122/45. EYES: Sclerae white. Extraocular muscle motion normal. Oral cavity, healthy mucous membrane with mouth and tongue. NECK: Supple. No nodes. No thyromegaly. LUNGS: Clear. No rales, rhonchi, fremitus, or dullness. HEART: Tones regular rate. No S3, S4. No venous jugular distention. ABDOMEN: Soft, no tenderness, guarding, rebound are noted. No ventral hernias noted. Surgical incision healed. Upper extremities and lower extremities, no angulation or deformities. Moves all 4. NEUROLOGIC: No sensorineural deficit. Cranial nerves 3-12 intact. SKIN: Warm and dry. PSYCHIATRIC: Normal. ASSESSMENT: Anemia, possibly postsurgical. At the moment I do not recommend any workup in the hospital, but would bring her to the clinic through her family doctor too and reroute her through her family doctor before workup, she has not had a colonoscopy at this age for screening colonoscopy. Secondly her present episode of abdominal pain, nausea and vomiting may represent heat stroke and/or viral illness. The diagnosis is not yet clear. MMODAL /[id number]
[2016-09-25] MEDS: Ascorbic Acid 500 MG Tab PO SCH (09:26)
[2016-09-25] MEDS: Levofloxacin/Dextrose 5%-Water 750 MG in Premix Bag 1 BAG IV SCH (09:26)
[2016-09-25] MEDS: Enoxaparin 40 MG/0.4 ML Syringe SUBCUT SCH (09:26)
[2016-09-25] MEDS: Iron Polysaccharides Complex 150 MG Cap PO SCH (09:26)
--- NOTE | 2016-09-25 09:31 | PCM.DCSUM1 ---
Discharge Summary - Hospital Course Brief History: This is a 51 year old female who recently underwent gynecologic surgery in [place] who presented to ED with complaints of dehydration, diarrhea, along with fever and chills; was admitted for medical management of post surgical complications. - Discharge Data Discharge Date: 09/25/16 Discharge Disposition: Home, Self-Care 01 Condition: Good - Discharge Diagnosis/Problem(s) (1) Anemia SNOMED Code(s): 504335126 ICD Code: D64.9 - ANEMIA, UNSPECIFIED Status: Acute Qualifiers: Anemia type: unspecified type Qualified Code(s): D64.9 - Anemia, unspecified (2) Reactive thrombocytosis SNOMED Code(s): 166062890 ICD Code: R79.89 - OTHER SPECIFIED ABNORMAL FINDINGS OF BLOOD CHEMISTRY Status: Acute (3) Ventral hernia without obstruction or gangrene SNOMED Code(s): 986610355 ICD Code: K43.9 - VENTRAL HERNIA WITHOUT OBSTRUCTION OR GANGRENE Status: Chronic (4) Dehydration SNOMED Code(s): 37069833 ICD Code: E86.0 - DEHYDRATION Status: Resolved (5) Electrolyte imbalance SNOMED Code(s): 953857283 ICD Code: E87.8 - OTH DISORDERS OF ELECTROLYTE AND FLUID BALANCE, NEC Status: Resolved (6) Abdominal pain SNOMED Code(s): 42613753 ICD Code: R10.9 - UNSPECIFIED ABDOMINAL PAIN Status: Resolved Qualifiers: Abdominal location: generalized Qualified Code(s): R10.84 - Generalized abdominal pain (7) Diarrhea SNOMED Code(s): 06739927 ICD Code: R19.7 - DIARRHEA, UNSPECIFIED Status: Resolved Qualifiers: Diarrhea type: unspecified type Qualified Code(s): R19.7 - Diarrhea, unspecified - Patient Summary/Data Operative Procedure(s) Performed: None Complications: None Consults: Consultations 09/24/16 13:24 Consult to Physician [CONS] Routine 09/25/16 08:00 Consult to Case Management [CONS] Routine Recommended Follow-up Testing/Procedures: CBC with auto differential in 2 weeks and Hematology eval Hospital Course: Patient was primarily admitted for medical management of post-surgical complications which related to her most recent gyneoclogic surgery. She was found to have significantly elevated platelets with reduced level of hemoglobin. She had a documented platelets of 1040 and a hemoglobin level of 9.2. Her platelets improved to 725 on follow up check. However her hemoglobin dropped down to as low as 7.6 and then came back up to 8.0 after she received an initial treatment with oral iron pill plus vitamin C supplement. With supportive care and PRN medications, patient gradually improved on this regimen. Her abdominal/pelvis CT scan showed ventral hernia w/o obstruction and cystic fluid collection in the right posterior rashi-pelvis which we felt postsurgical seroma in etiology. Her hospital course was uncomplicated. She did receive intravenous antibiotic for presumptive infection but was discontinued immediately once her blood cultures and CXR were negative along with a normal level of WBC. Patient is now stable for discharge. She was advised to have a follow-up CBC in 2 weeks. She is to continue taking her oral iron pills along with vitamin C. She has been scheduled to see Dr. Chao for further evaluation of her reactive thrombocytosis. Patient was further advised to call her primary care doctor for any questions or concerns right after discharge. The patient expressed understanding and in agreement with the plans as discussed above. All questions were answered. - Patient Instructions Diet: Usual Diet as Tolerated Activity: As Tolerated Driving: Do Not Drive Showering/Bathing: May Shower Notify Provider of: Fever, Increased Pain, Nausea and/or Vomiting Other/Special Instructions: - Please take all medications as directed. - Repeat labs: CBC with auto differential in 2 weeks. - Resume routine daily activities as tolerated. - Recommend keeping your appointment with Hematology. - Call your doctor for questions or concerns after discharge. - Follow up with your family doctor in 2 weeks - Discharge Plan Prescriptions/Med Rec: Ascorbic Acid [Vitamin C] 500 mg PO BID #60 tablet Iron Polysaccharides Complex [Ferrex 150] 150 mg PO BID #60 cap Home Medications: Home Meds Ascorbic Acid [Vitamin C] 500 mg PO BID #60 tablet 09/25/16 [Rx] Iron Polysaccharides Complex [Ferrex 150] 150 mg PO BID #60 cap 09/25/16 [Rx] Patient Handouts: Anemia, Nonspecific Referrals: Nahomy Hatfield MD [Ordering Only Provider] - (Dr. Hatfield office will call with appt. time and date after reviewing records that are sent.) PCP,Not In Area [Primary Care Provider] - - Discharge Summary/Plan Comment DC Time >30 min.: Yes (45 mins) Discharge Summary/Plan Comment: Discharge to Home - General Info Date of Service: 09/25/16 Admission Dx/Problem (Free Text: Admission Diagnosis/Problem Admission Diagnosis/Problem Abdominal pain Subjective Update: Follow Up Functional Status: Reports: Pain Controlled, Tolerating Diet, Ambulating, Urinating. Denies: New Symptoms - Review of Systems General: Denies: Fever, Weakness, Fatigue, Malaise, Chills HEENT: Denies: Contact Lenses Pulmonary: Denies: Shortness of Breath, Cough, Wheezing Cardiovascular: Denies: Chest Pain, Dyspnea on Exertion, Edema, Lightheadedness Gastrointestinal: Denies: Abdominal Pain, Decreased Appetite, Diarrhea, Difficulty Swallowing, Hematochezia, Melena, Nausea, Vomiting Genitourinary: Reports: No Symptoms Musculoskeletal: Reports: No Symptoms Skin: Denies: Cyanosis, Pruritis, Rash Neurological: Denies: Confusion, Difficulty Walking, Weakness, Gait Disturbance Psychiatric: Denies: Depression, Anxiety, Agitation, Hallucinations Systems Review Comment: No overnight or acute issues. She is doing really well. She is excited to go home this morning. She has no new complaints. - Patient Data Vitals - Most Recent: Last Vital Signs Temp 36.3 C 09/25/16 03:43 Pulse 71 09/25/16 03:43 Resp 16 09/25/16 03:43 BP 115/87 09/25/16 03:43 Pulse Ox 98 09/25/16 03:43 Weight - Most Recent: 79.379 kg I&O - Last 24 hours: Intake & Output 09/24/16 09/25/16 09/25/16 22:59 06:59 14:59 Intake Total 3068 1500 Output Total 2700 Balance 368 1500 Lab Results - Last 24 hrs: Laboratory Results - last 24 hr 09/24/16 09/24/16 09/25/16 Range/Units 05:45 05:45 06:20 WBC 4.76 (3.98-10.04) K/mm3 RBC 3.47 L (3.98-5.22) M/mm3 Hgb 8.0 L (11.2-15.7) gm/L Hct 27.1 L (34.1-44.9) % MCV 78.1 L (79.4-94.8) fl MCH 23.1 L (25.6-32.2) pg MCHC 29.5 L (32.2-35.5) g/dl RDW Std Deviation 46.4 H (36.4-46.3) fL Plt Count 725 H (182-369) K/mm3 MPV 9.6 (9.4-12.3) fl Neut % (Auto) 36.5 (34.0-71.1) % Lymph % (Auto) 38.7 (19.3-51.7) % [place] % (Auto) 10.1 (4.7-12.5) % Eos % (Auto) 12.6 H (0.7-5.8) Baso % (Auto) 2.1 H (0.1-1.2) % Neut # (Auto) 1.74 (1.56-6.13) K/mm3 Lymph # (Auto) 1.84 (1.18-3.74) K/mm3 [place] # (Auto) 0.48 H (0.24-0.36) K/mm3 Eos # (Auto) 0.60 H (0.04-0.36) K/mm3 Baso # (Auto) 0.10 H (0.01-0.08) K/mm3 Manual Slide Review Abnormal smear D-Dimer, Quantitative 0.35 (0.19-0.59) mg/L Sodium (136-145) mEq/L Potassium (3.5-5.1) mEq/L Chloride (98-107) mEq/L Carbon Dioxide (21-32) mEq/L Anion Gap (5-15) BUN (7-18) mg/dL Creatinine (0.55-1.02) mg/dL Est Cr Clr Drug Dosing mL/min Estimated GFR (MDRD) (>60) mL/min BUN/Creatinine Ratio (14-18) Glucose (74-106) mg/dL Calcium (8.5-10.1) mg/dL Magnesium (1.8-2.4) mg/dl C-Reactive Protein (<1.0) mg/dL Mycoplasma pneumon IgM Negative (NEGATIVE) 09/25/16 Range/Units 06:20 WBC (3.98-10.04) K/mm3 RBC (3.98-5.22) M/mm3 Hgb (11.2-15.7) gm/L Hct (34.1-44.9) % MCV (79.4-94.8) fl MCH (25.6-32.2) pg MCHC (32.2-35.5) g/dl RDW Std Deviation (36.4-46.3) fL Plt Count (182-369) K/mm3 MPV (9.4-12.3) fl Neut % (Auto) (34.0-71.1) % Lymph % (Auto) (19.3-51.7) % [place]offey % (Auto) (4.7-12.5) % Eos % (Auto) (0.7-5.8) Baso % (Auto) (0.1-1.2) % Neut # (Auto) (1.56-6.13) K/mm3 Lymph # (Auto) (1.18-3.74) K/mm3 [place] # (Auto) (0.24-0.36) K/mm3 Eos # (Auto) (0.04-0.36) K/mm3 Baso # (Auto) (0.01-0.08) K/mm3 Manual Slide Review D-Dimer, Quantitative (0.19-0.59) mg/L Sodium 141 (136-145) mEq/L Potassium 4.1 (3.5-5.1) mEq/L Chloride 108 H (98-107) mEq/L Carbon Dioxide 23 (21-32) mEq/L Anion Gap 14.1 (5-15) BUN 5 L (7-18) mg/dL Creatinine 0.6 (0.55-1.02) mg/dL Est Cr Clr Drug Dosing 79.68 mL/min Estimated GFR (MDRD) > 60 (>60) mL/min BUN/Creatinine Ratio 8.3 L (14-18) Glucose 101 (74-106) mg/dL Calcium 9.0 (8.5-10.1) mg/dL Magnesium 2.2 (1.8-2.4) mg/dl C-Reactive Protein 5.2 H* (<1.0) mg/dL Mycoplasma pneumon IgM (NEGATIVE) Med Orders - Current: Current Medications Acetaminophen (Tylenol) 650 mg PO Q6H PRN PRN Reason: Pain/Fever Last Admin: 09/25/16 06:48 Dose: 650 mg Ascorbic Acid (Vitamin C) 500 mg PO BID OWEN Last Admin: 09/25/16 09:26 Dose: 500 mg Enoxaparin Sodium (Lovenox) 40 mg SUBCUT DAILY [facility] Last Admin: 09/25/16 09:26 Dose: 40 mg Hydralazine HCl (Apresoline) 20 mg IVPUSH Q4H PRN PRN Reason: Hypertension Hydromorphone HCl (Dilaudid) 0.5 mg IVPUSH Q4H PRN PRN Reason: Pain (moderate 4-6) Last Admin: 09/24/16 08:09 Dose: 0.5 mg Levofloxacin/Dextrose 750 mg/ (Premix) 150 mls @ 100 mls/hr IV Q24H [facility] Last Admin: 09/25/16 09:26 Dose: 100 mls/hr Magnesium Sulfate (Pharmacy To Dose - Magnesium Replacement) 1 dose .XX ASDIRECTED [facility] Metoprolol Tartrate (Lopressor) 5 mg IVPUSH Q4H PRN PRN Reason: Tachycardia Ondansetron HCl (Zofran) 4 mg IVPUSH Q8H PRN PRN Reason: Nausea/Vomiting Last Admin: 09/23/16 16:03 Dose: 4 mg Polysaccharide Iron Complex (Ferrex 150) 150 mg PO BID [facility] Last Admin: 09/25/16 09:26 Dose: 150 mg Potassium Chloride (Pharmacy To Dose - Potassium Replacement) 1 dose .XX ASDIRECTED [facility] Prochlorperazine Edisylate (Compazine) 10 mg IVPUSH Q6H PRN PRN Reason: Nausea/Vomiting Sodium Chloride (Saline Flush) 10 ml FLUSH ASDIRECTED PRN PRN Reason: Keep Vein Open Last Admin: 09/23/16 12:29 Dose: 10 ml Discontinued Medications Diatrizoate Meglum/Diatrizoate Sod (Gastrografin 37%) 90 ml PO ONETIME ONE Stop: 09/23/16 12:00 Last Admin: 09/23/16 12:12 Dose: 90 ml Hydromorphone HCl (Dilaudid) 1 mg IVPUSH ONETIME ONE Stop: 09/23/16 10:57 Last Admin: 09/23/16 11:13 Dose: 1 mg Hydromorphone HCl (Dilaudid) 0.5 mg IVPUSH ONETIME ONE Stop: 09/23/16 12:25 Last Admin: 09/23/16 12:34 Dose: 0.5 mg Sodium Chloride (Normal Saline) 1,000 mls @ 1,000 mls/hr IV .BOLUS STA Stop: 09/23/16 11:50 Last Admin: 09/23/16 11:09 Dose: 1,000 mls/hr Sodium Chloride (Normal Saline) 1,000 mls @ 150 mls/hr IV ASDIRECTED [facility] Last Admin: 09/24/16 14:48 Dose: 150 mls/hr Levofloxacin/Dextrose 500 mg/ (Premix) 100 mls @ 100 mls/hr IV ONETIME ONE Stop: 09/23/16 15:19 Last Admin: 09/23/16 14:51 Dose: 100 mls/hr Magnesium Sulfate 2 gm/ Premix 50 mls @ 25 mls/hr IV ONETIME ONE Stop: 09/24/16 09:53 Last Admin: 09/24/16 10:05 Dose: 25 mls/hr Iopamidol (Isovue-300 (61%)) 125 ml IVPUSH ONETIME ONE Stop: 09/23/16 12:00 Last Admin: 09/23/16 12:12 Dose: 125 ml Ondansetron HCl (Zofran) 4 mg IVPUSH ONETIME ONE Stop: 09/23/16 10:52 Last Admin: 09/23/16 11:10 Dose: 4 mg Potassium Chloride (Potassium Chloride) 40 meq PO ONETIME ONE Stop: 09/23/16 15:47 Last Admin: 09/23/16 16:26 Dose: 40 meq Potassium Chloride (Potassium Chloride) 40 meq PO ONETIME ONE Stop: 09/23/16 16:31 Last Admin: 09/23/16 16:53 Dose: Not Given Potassium Chloride (Potassium Chloride) 40 meq PO BID [facility] Stop: 09/24/16 21:01 Last Admin: 09/24/16 22:12 Dose: 40 meq - Exam General: Reports: Alert, Oriented, Cooperative, No Acute Distress HEENT: Reports: Pupils Equal, Pupils Reactive, EOMI, Mucous Membr. Moist/[place] Neck: Reports: Supple, Trachea Midline, No JVD, No Thyromegaly Lungs: Reports: Clear to Auscultation, Normal Respiratory Effort Cardiovascular: Reports: Regular Rate, Regular Rhythm GI/Abdominal Exam: Normal Bowel Sounds, Soft, No Organomegaly (mild tenderness on palpation on surgical site), No Distention, No Abnormal Bruit, Tender (Female) Exam: Deferred Rectal (Female) Exam: Deferred Back Exam: Reports: Normal Inspection, Decreased Range of Motion Extremities: Normal Inspection, Normal Range of Motion, Non-Tender, No Pedal Edema, Normal Capillary Refill Skin: Reports: Warm, Dry, Intact Neurological: Reports: No New Focal Deficit Psy/Mental Status: Reports: Alert, Normal Affect, Normal Mood *Q Meaningful Use (DIS) - VTE *Q VTE Criteria *Q: - Stroke *Q Stroke Criteria *Q: - AMI *Q AMI Criteria *Q:
[2016-09-25 09:44] VITALS: BP 127/79
--- NOTE | 2016-09-28 10:47 | CT ---
CT abdomen and pelvis Technique: Multiple axial sections were obtained from above the dome of the diaphragm inferiorly through the pubic symphysis. Intravenous and oral contrast was utilized. Delayed images were also obtained through the pelvis. Comparison: No previous study is available. Findings: Visualized lung bases show nothing acute. Liver shows a low density lesion compatible with cyst anteriorly measuring 3.1 cm. No additional abnormality is identified within the liver. Spleen appears within normal limits. Adrenal glands show no nodule. Pancreas is within normal limits. Gallbladder shows no calcified gallstones. Kidneys show symmetric contrast enhancement without hydronephrosis or mass. Abdominal aorta shows no aneurysmal dilatation. No retroperitoneal adenopathy or mesenteric abnormalities are seen. No pelvic mass or adenopathy is seen. Right sided femoral hernia is seen containing a loop of bowel. No findings of bowel obstruction are seen. Small fat-containing umbilical hernia is also noted. Delayed images show contrast within the distal ureters and within the bladder. Small cystic area noted next to the rectum measuring approximately 2.1 cm presumably postsurgical in etiology. Bone window settings were reviewed which show mild scoliosis within the spine with mild scattered degenerative change. Impression: 1. Right femoral hernia containing a small loop of bowel which shows no obstruction at this time. Fat-containing umbilical hernia is seen. 2. Cyst within the anterior liver. 3. Cystic structure noted next to the rectum likely postoperative in etiology. 4. Nothing acute is identified on CT study of the abdomen and pelvis. Diagnostic code #3 Agree with preliminary report issued by [facility] ([facility] preliminary report dictated on 09/23/16, 1:28 PM Central Time)
== END 2016-09-25 11:20 | disposition home or self-care (01) ==
LOC: JD.ED 10:22 → JD.MS 14:32
PROVIDERS: ADMIT Internal Medicine Cardiovascular Disease; ATTEND Internal Medicine Cardiovascular Disease
DX: D64.9 Anemia, unspecified (principal); R10.84 Generalized abdominal pain; T81.89XA Other complications of procedures, not elsewhere classified, initial encounter; D47.3 Essential (hemorrhagic) thrombocythemia; K43.9 Ventral hernia without obstruction or gangrene; E86.0 Dehydration; E87.8 Other disorders of electrolyte and fluid balance, not elsewhere classified; R19.7 Diarrhea, unspecified; D72.829 Elevated white blood cell count, unspecified; R11.2 Nausea with vomiting, unspecified; Z85.41 Personal history of malignant neoplasm of cervix uteri; Z79.899 Other long term (current) drug therapy; Z90.710 Acquired absence of both cervix and uterus
CPT/HCPCS: 36415; 71020; 74177; 80048; 80053; 81001; 83690; 83735; 85025; 85379; 86140; 86738; 87040; 96361; 96365; 96366; 96367; 96372; 96375; 96376; 99285; A9270; G0378; J1170; J1650; J1956; J2405; J7040; J7050; Q9963; Q9967; 96374; J3475

== ENCOUNTER 2020-02-21 18:46 | Emergency (ER) | payer MEDICAID ==
--- NOTE | 2020-02-21 19:36 | EDM.PDOC ---
ED HPI GENERAL MEDICAL PROBLEM - General Chief Complaint: Cardiovascular Problem Stated Complaint: HEART IS FAST AND TIGHT SOB Time Seen by Provider: 02/21/20 19:09 Source of Information: Reports: Patient, Family (Claudia) History Limitations: Reports: No Limitations - History of Present Illness INITIAL COMMENTS - FREE TEXT/NARRATIVE: Ms. Martínez is a very pleasant 54-year-old woman who now presents to the ED with a complaint of rapid palpitations, chest tightness, and mild dyspnea. She states that she was diagnosed with COVID-19 on 11/20/2019, but that she did not get very sick, and that both she and her fianc quarantined. She states that ever since then, however, she has had the sensation of rapid palpitations when supine. She states that the sensation does not occur every time she is supine, but most times. Then in early January, in addition to the rapid palpitations, she also developed the sensation of chest tightness and dyspnea whenever she had the rapid palpitations, although again, not every time she had the rapid palpitations, but most times. The patient went on to say that she got up to use the restroom around 3:00 this morning, and when she got back in bed, she had a very brief episode of vertigo. It resolved immediately when she sat up, then recurred again when she laid back down, but then resolved again when she sat up, and since then, it has not recurred. She states that the total duration was a matter of seconds. No prior episodes of vertigo. The patient states that since November, she has taken an occasional Tylenol, otherwise, she has not specifically tried to treat any of her symptoms with any [id number] medicines or home remedies. She has not talked to her PCP about her symptoms. Here in the ED, the patient's initial BP is found to be mildly elevated at 168/80, otherwise, she is hemodynamically stable, afebrile, saturating 98% on room air. Although supine here in the ED, she states that she is not currently experiencing any symptoms; she currently feels perfectly normal. Other than the above symptoms, the patient denies having a recent fever, chills, sore throat, ear pain, nasal or sinus congestion, cough, nausea, vomiting, constipation, diarrhea, abdominal pain, urinary symptoms, recent weight gain or weight loss, recent bloody bowel movements or black bowel movements, recent joint aches, headaches, or rashes. The patient's PCP is Dr. Jeniffer Irby, in [place]. Her Oncologist is Dr. Yesenia Darnell, in [place], [place]. She already received an influenza vaccine this season. - Related Data Allergies Allergy/AdvReac Type Severity Reaction Status Date / Time No Known Allergies Allergy Verified 02/21/20 18:55 Home Meds: Home Meds Ascorbic Acid [Vitamin C] 500 mg PO BID #60 tablet 09/25/16 [Rx] Iron Polysaccharides Complex [Ferrex 150] 150 mg PO BID #60 cap 09/25/16 [Rx] Fish Oil/[place]-3 Fatty Acids [Fish Oil 1,000 MG] 1 tab PO DAILY 02/21/20 [History] Meloxicam [Mobic] 1 tab PO ASDIRECTED PRN 02/21/20 [History] Multivitamin 1 tab PO DAILY 02/21/20 [History] Past Medical History Musculoskeletal History: Reports: Osteoarthritis (bilateral knees), Other (See Below) (Thoracolumbar scoliosis) Endocrine/Metabolic History: Reports: Obesity/BMI 30+ Hematologic History: Reports: Blood Transfusion(s) Oncologic (Cancer) History: Reports: Ovarian (2017, s/p CHyst, no CTx or RTx) - Infectious Disease History Infectious Disease History: Reports: Chicken Pox, Novel Coronavirus (dx'd 11/20/2019) - Past Surgical History Female Surgical History: Reports: Section (x 4), Hysterectomy (complete, 08/29/2016) Oncologic Surgical History: Reports: Other (See Below) Other Oncologic Surgeries/Procedures: hysterectomy to remove ovarian cancer, august 29 2016 Social & Family History - Tobacco Use Tobacco Use Status *Q: Never Tobacco User Second Hand Smoke Exposure: No - Caffeine Use Caffeine Use: Reports: None - Alcohol Use Alcohol Use History: No - Recreational Drug Use Recreational Drug Use: No - Living Situation & Occupation Living situation: Reports: Single, with Significant Other (Fianc), with Family (Daughter) Occupation: Unemployed ED ROS GENERAL - Review of Systems Review Of Systems: Comprehensive ROS is negative, except as noted in HPI. ED EXAM, GENERAL - Physical Exam Exam: See Below Exam Limited By: No Limitations General Appearance: Alert, WD/WN, No Apparent Distress Eye Exam: Bilateral Eye: EOMI, Normal Inspection Ears: Normal External Exam, Hearing Grossly Normal Nose: Normal Inspection Throat/Mouth: Normal Inspection, Normal Lips, Normal Voice, No Airway Compromise Head: Atraumatic, Normocephalic Neck: Normal Inspection, Full Range of Motion Respiratory/Chest: No Respiratory Distress, Lungs Clear, Normal Breath Sounds, No Accessory Muscle Use. No: Decreased Breath Sounds, Crackles, Rhonchi, Wheezing, Stridor, Prolonged Expiration Cardiovascular: Normal Peripheral Pulses, Regular Rate, Rhythm, No Gallop, No JVD, No Murmur, No Rub Peripheral Pulses: 3+: Radial (L), Radial (R) GI/Abdominal: Normal Bowel Sounds, Soft, Non-Tender, No Organomegaly, No Distention, No Abnormal Bruit, No Mass Back Exam: Normal Inspection, Full Range of Motion, NT Extremities: Normal Inspection, Normal Range of Motion, Normal Capillary Refill Neurological: Alert, Oriented, Normal Cognition, No Motor/Sensory Deficits Psychiatric: Normal Affect Skin Exam: Warm, Dry, Intact, Normal Color, No Rash #1 Interpretation EKG Date: 02/21/20 Time: 18:53 Rhythm: NSR Rate (Beats/Min): 77 [place]: Normal P-Wave: Present QRS: Normal ST-T: Normal QT: Normal Comparison: NA - No Prior EKG Course - Vital Signs Last Recorded V/S: Last Vital Signs Temp 36.1 C 02/21/20 18:53 Pulse 69 02/21/20 20:33 Resp 16 02/21/20 18:53 BP 132/58 L 02/21/20 20:33 Pulse Ox 99 02/21/20 20:33 Orthostatic Blood Pressure [ 156/66 Standing] Orthostatic Blood Pressure [ 147/68 Sitting] Orthostatic Blood Pressure [ 138/56 Supine] - Orders/Labs/Meds Orders: Active Orders 24 hr Category Date Time Status EKG 12 Lead [EKG Documentation Completion] [RC] STAT Care 02/21/20 19:47 Active Holter Monitor 48 Hours [RC] STAT Care 02/21/20 20:39 Active Orthostatic Vital Signs [RC] STAT Care 02/21/20 19:32 Active Chest 2V [CR] Stat Exams 02/21/20 19:31 Taken Labs: Laboratory Tests 02/21/20 02/21/20 02/21/20 Range/Units 19:00 19:00 19:00 WBC 7.22 (3.98-10.04) K/mm3 RBC 4.61 (3.98-5.22) M/mm3 Hgb 14.2 D (11.2-15.7) gm/dl Hct 43.6 (34.1-44.9) % MCV 94.6 D (79.4-94.8) fl MCH 30.8 (25.6-32.2) pg MCHC 32.6 (32.2-35.5) g/dl RDW Std Deviation 50.2 H (36.4-46.3) fL Plt Count 411 H D (182-369) K/mm3 MPV 10.9 (9.4-12.3) fl Neutrophils % (Manual) 46 (40-60) % Band Neutrophils % 0 (0-10) % Lymphocytes % (Manual) 40 (20-40) % Atypical Lymphs % 0 % Monocytes % (Manual) 8 (2-10) % Eosinophils % (Manual) 5 (0.7-5.8) % Basophils % (Manual) 1 (0.1-1.2) Platelet Estimate Adequate RBC Morph Comment Normal D-Dimer, Quantitative 0.38 (0.19-0.50) mg/L Sodium 142 (136-145) mEq/L Potassium 3.7 (3.5-5.1) mEq/L Chloride 106 (98-107) mEq/L Carbon Dioxide 26 (21-32) mEq/L Anion Gap 13.7 (5-15) BUN 12 (7-18) mg/dL Creatinine 0.7 (0.55-1.02) mg/dL Est Cr Clr Drug Dosing 69.33 mL/min Estimated GFR (MDRD) > 60 (>60) mL/min BUN/Creatinine Ratio 17.1 (14-18) Glucose 114 H (74-106) mg/dL Calcium 9.0 (8.5-10.1) mg/dL Magnesium 2.2 (1.8-2.4) mg/dl Total Bilirubin 0.4 (0.2-1.0) mg/dL AST 20 (15-37) U/L ALT 43 (14-59) U/L Alkaline Phosphatase 88 (46-116) U/L Troponin I < 0.017 (0.00-0.056) ng/mL NT-Pro-B Natriuret Pep (0-125) pg/mL Total Protein 8.0 (6.4-8.2) g/dl Albumin 3.8 (3.4-5.0) g/dl Globulin 4.2 gm/dL Albumin/Globulin Ratio 0.9 L (1-2) TSH 3rd Generation 3.485 (0.358-3.74) uIU/mL 02/21/20 Range/Units 19:00 WBC (3.98-10.04) K/mm3 RBC (3.98-5.22) M/mm3 Hgb (11.2-15.7) gm/dl Hct (34.1-44.9) % MCV (79.4-94.8) fl MCH (25.6-32.2) pg MCHC (32.2-35.5) g/dl RDW Std Deviation (36.4-46.3) fL Plt Count (182-369) K/mm3 MPV (9.4-12.3) fl Neutrophils % (Manual) (40-60) % Band Neutrophils % (0-10) % Lymphocytes % (Manual) (20-40) % Atypical Lymphs % % Monocytes % (Manual) (2-10) % Eosinophils % (Manual) (0.7-5.8) % Basophils % (Manual) (0.1-1.2) Platelet Estimate RBC Morph Comment D-Dimer, Quantitative (0.19-0.50) mg/L Sodium (136-145) mEq/L Potassium (3.5-5.1) mEq/L Chloride (98-107) mEq/L Carbon Dioxide (21-32) mEq/L Anion Gap (5-15) BUN (7-18) mg/dL Creatinine (0.55-1.02) mg/dL Est Cr Clr Drug Dosing mL/min Estimated GFR (MDRD) (>60) mL/min BUN/Creatinine Ratio (14-18) Glucose (74-106) mg/dL Calcium (8.5-10.1) mg/dL Magnesium (1.8-2.4) mg/dl Total Bilirubin (0.2-1.0) mg/dL AST (15-37) U/L ALT (14-59) U/L Alkaline Phosphatase (46-116) U/L Troponin I (0.00-0.056) ng/mL NT-Pro-B Natriuret Pep 24 (0-125) pg/mL Total Protein (6.4-8.2) g/dl Albumin (3.4-5.0) g/dl Globulin gm/dL Albumin/Globulin Ratio (1-2) TSH 3rd Generation (0.358-3.74) uIU/mL - Re-Assessments/Exams Free Text/Narrative Re-Assessment/Exam: 02/21/20 19:33 As above, the patient states that she has had intermittent rapid palpitations since November, when she was diagnosed with COVID-19. The palpitations only occur if she is supine, although not every time she is supine, only most times. She then developed, in addition to the rapid palpitations, chest tightness and dyspnea, again, only whenever she would have the rapid palpitations, but not every time she had rapid palpitations. She then experienced a very brief episode of vertigo around 3:00 this morning, with no prior similar symptoms, and no symptoms since. Here in the ED, she is completely asymptomatic, and her physical exam is completely unremarkable. An ECG obtained at triage demonstrates a normal sinus rhythm at 77 bpm, and appears to be completely normal. I have ordered a work-up that includes orthostatics, several blood tests, and a chest x-ray. 02/21/20 19:58 The patient is not orthostatic. 02/21/20 20:36 Two-view chest radiograph reviewed. The cardiac silhouette is within normal limits. No pulmonary vascular congestion. No pleural effusions. No focal infiltrate. No pneumothorax. There is significant thoracolumbar scoliosis. Formal read per the Radiologist pending. The patient's CBC is remarkable for mild thrombocytosis of 411,000, and is o therwise unremarkable. Her CMP is remarkable for slight hyperglycemia of 114, and is otherwise unremarkable. Her magnesium level, TSH, troponin, D-dimer, and pro-BNP are all within normal levels/undetectable. 02/21/20 20:42 Test results discussed with the patient and her fianc. As above, today's work- up is grossly unremarkable. I explained that we are able to exclude that she has a pulmonary embolus, significant electrolyte abnormalities, hyperthyroidism, severe anemia, congestive heart failure, or a recent heart attack. The patient will now be fitted with a 48-hour Holter monitor, with the results forwarded to her PCP, with whom she can follow-up. I explained that if, over the next 48 hours, the patient feels rapid palpitations, but that her results show no actual tachycardia, that the cause of her symptoms is most likely anxiety. I explained that there are no tests for anxiety, but it would be difficult to explain otherwise. The patient expressed understanding. Departure - Departure Time of Disposition: 20:44 Disposition: Home, Self-Care 01 Condition: Good Clinical Impression: Rapid palpitations, Chest tightness, Dyspnea, Vertigo - Discharge Information *PRESCRIPTION DRUG MONITORING PROGRAM REVIEWED*: Not Applicable *COPY OF PRESCRIPTION DRUG MONITORING REPORT IN PATIENT BETTYE: Not Applicable Referrals: Jeniffer Irby MD [Primary Care Provider] - Yesenia Darnell MD [Ordering Only Provider] - Forms: ED Department Discharge Additional Instructions: You were seen in the emergency room for recurrent rapid palpitations when you lie down, and associated with chest tightness and shortness of breath, along with a brief episode of feeling vertiginous early this morning. Work-up in the ER included positional blood pressure checks, numerous blood tests, a chest x-ray, and an ECG. Your entire work-up was unremarkable. You have not suffered a heart attack. No electrolyte abnormalities were found. You are not anemic. You are not dehydrated. You do not have a blood clot in your lungs. You are not hyperthyroid. You do not have congestive heart failure. The cause of your symptoms has not yet been determined. A 48-hour Holter monitor has been placed. Turn the monitor in as instructed in 48 hours, then follow-up with your PCP, Dr. Jeniffer Irby, in [place], to get the results. If any other problems, please do not hesitate to return to the ER. Sepsis Event Note (ED) - Evaluation Sepsis Screening Result: No Definite Risk - Focused Exam Vital Signs: Vital Signs Temp Pulse Resp BP Pulse Ox 02/21/20 20:33 69 132/58 L 99 02/21/20 18:53 36.1 C 85 16 168/80 H 98 - My Orders Last 24 Hours: My Active Orders 02/21/20 19:31 Chest 2V [CR] Stat 02/21/20 19:32 Orthostatic Vital Signs [RC] STAT 02/21/20 19:47 EKG 12 Lead [EKG Documentation Completion] [RC] STAT 02/21/20 20:39 Holter Monitor 48 Hours [RC] STAT - Assessment/Plan Last 24 Hours: My Active Orders 02/21/20 19:31 Chest 2V [CR] Stat 02/21/20 19:32 Orthostatic Vital Signs [RC] STAT 02/21/20 19:47 EKG 12 Lead [EKG Documentation Completion] [RC] STAT 02/21/20 20:39 Holter Monitor 48 Hours [RC] STAT
[2020-02-21 20:34] VITALS: BP 132/58; PULSE 69
--- NOTE | 2020-02-22 09:44 | CR ---
Chest: 2 views of the chest were obtained. Comparison: Prior chest imaging of 09/24/16. Heart size and mediastinum are within normal limits. Lungs show no definite acute parenchymal change. Scoliosis and mild degenerative change are seen within the spine. Impression: 1. Nothing acute is definitely identified on 2 view chest x-ray. Diagnostic code #2
== END 2020-02-21 21:11 | disposition home or self-care (01) ==
LOC: JD.ED 18:46
DX: R00.2 Palpitations (principal); R07.89 Other chest pain; R06.00 Dyspnea, unspecified; R42 Dizziness and giddiness; E66.9 Obesity, unspecified; Z68.39 Body mass index [BMI] 39.0-39.9, adult
CPT/HCPCS: 36415; 71046; 71046-26; 80053; 83735; 83880; 84443; 84484; 85007; 85027; 85379; 93005; 93010; 93225; 93226; 99283; 99285-25